=== PATIENT | male | born 1960 | race Caucasian/White ===

== ENCOUNTER 2016-03-07 05:17 | Emergency (ER) | payer SELFPAY ==
[2016-03-07 05:18] VITALS: BMI 31.5
[2016-03-07 05:45] VITALS: TEMP 97.7
[2016-03-07] MEDS ORDERED: OXYCODONE HCL 5 MG TABLET PO STA (06:36)
--- NOTE | 2016-03-07 06:38 | EDPRACDOC ---
[id number]: 03/07/16 06:20 Information Source: Patient Mode Of Arrival: Car Home Medications: Home Medications Ibuprofen Tablet [Motrin] 600 mg PO Q6H #30 tab 10/11/13 Lisinopril 20 mg PO DAILY 03/07/16 Oxycodone HCl [Roxicodone] 5 mg PO Q4-6H PRN #15 tablet 03/07/16 Tizanidine HCl 4 mg PO Q6 PRN 03/07/16 Allergies/Adverse Reactions: Allergies Allergy/AdvReac Type Severity Reaction Status Date / Time No Known Allergies Allergy Verified 03/07/16 05:40 - History of Present Illness Onset: 2 DAYS AGO HPI: PT PRESENTS WITH 2 DAYS OF PROGRESSIVE LOWER LUMBAR BACK PAIN SHARP IN CHARACTER. NO LOSS OF BOWEL OR BLADDER FUNCTION. Pain Location: Reports: Bilateral, Lower, Lumbar Pain Radiates To: Reports: None Pain Severity: Reports: Moderate Pain Quality: Reports: Aching, Sharp Worsened By: Reports: Movement Associated Signs and Symptoms: Reports: None ED Past Medical History - History Reviewed Yes Nurses notes reviewed and agree except as marked - Patient Medical History Cardiac History: Reports: Hypertension Psychological History: Denies: Depression Systemic History: Denies: Cancer - Social Medical History Smoking Status: Former smoker Lives In: Home EDM Review of Systems - Review of Systems ROS Negative Except as Marked: Yes All systems reviewed and were negative except as marked Musculoskeletal: Back (LOWER LUMBAR BACK PAIN) - Physical Exam Constitutional: Alert Oriented to: Time, Person, Place Last recorded Vital Signs: Last Vital Signs Temp 97.7 F 03/07/16 05:40 Pulse 68 03/07/16 05:40 Resp 18 03/07/16 05:40 BP 141/79 03/07/16 05:40 Pulse Ox 93 03/07/16 05:40 Oxygen Pulse Oxygen Saturation 93 O2 Device Oxygen Flow Rate Fraction of Inspired Oxygen ( FIO2) - HEENT Head: negative: Deformity, Laceration Eye Exam: negative: Conjunctival Injection, Pale Conjunctiva Oropharynx: negative: Membranes Dry Nose: negative: Congestion, Discharge Neck: negative: Limited ROM - Respiratory/Cardiovascular Respiratory: Normal - CTA. negative: Accessory Muscle Use, Diminished, Tachypnea Cardiovascular: negative: Bradycardia, Tachycardia, Irregular - GI Auscultation: Normal Palpation: Normal Tenderness: Non tender - Musculoskeletal Back: Lumbar TTP. negative: Thoracic Step-off, Lumbar Step-off, Thoracic TTP Extremities: Radial Pulse (PALPABLE) - Integumentary Skin: Warm, Dry. negative: Rash - Neurologic Memory Impaired: Normal Motor Function: Normal Mood Description: Anxious, Appropriate Thought: Coherent Perception: Normal Decision Time to Discharge: 06:37 - Departure Yes I personally saw and evaluated the patient. Disposition: Home Condition: Stable Final Diagnosis: Lumbar radiculopathy Instructions: Lumbar Radiculopathy (ED), Thoracic (Lumbar) Strain Education/Counseling Given To: Patient, Family Member Education/Counseling Given Regarding: Diagnosis, Treatment, Prognosis, Follow Up Referrals: Wilfrido Vance MD [Primary Care Provider] - As Needed Prescriptions: Oxycodone HCl [Roxicodone] 5 mg PO Q4-6H PRN #15 tablet PRN Reason: Breakthrough Pain Forms: Excuse Note
[2016-03-07 07:07] VITALS: BP 139/79; PULSE 60
== END 2016-03-07 07:00 | disposition home or self-care (01) ==
LOC: ED 05:17
DX: M54.16 Radiculopathy, lumbar region (principal)
CPT/HCPCS: 99283; J3490